=== PATIENT | female | born 1965 | race Caucasian/White ===

== ENCOUNTER → 2024-12-23 12:27 | Outpatient (REF) | payer BC, SELFPAY | LOC: HWRAD 12:27 | PROVIDERS: ATTENDING PHYSICIAN Physician Assistant | DX: M25.561 Pain in right knee (principal) | CPT/HCPCS: 73564 ==

== ENCOUNTER → 2025-02-05 13:53 | Outpatient (REF) | payer BC, SELFPAY | LOC: RAD 13:53 | PROVIDERS: ATTENDING PHYSICIAN Physician Assistant | DX: N95.9 Unspecified menopausal and perimenopausal disorder (principal) | CPT/HCPCS: 77080 ==